=== PATIENT | male | born 1990 | race Caucasian/White ===

== ENCOUNTER 2016-11-06 17:30 | Emergency (ER) | payer SELFPAY ==
[2016-11-06 17:36] VITALS: BP 112/72
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
--- NOTE | 2016-11-07 07:06 | Diagnostic Imaging Report ---
[facility] [id number] [facility] [address] [id number] Report Submission Date: November 06, 2016 6:05:41 PM CDT Patient Study Name: SD ISLAS Date: November 06, 2016 5:43:10 PM CDT Modality Type: CR Gender: M Description: UPPER EXTREMITY : 89 Institution: [facility] Physician: LANDON ODEN Left hand 3 views Clinical history pain Technique AP lateral oblique Findings: There is no fracture /lytic change. Bone density is normal. The joints appear normal. Impression: Negative left hand Electronically signed on November 06, 2016 6:05:41 PM CDT by: Ayden TORRES
== END 2016-11-06 18:21 | disposition home or self-care (01) ==
LOC: ED 17:30
DX: S63.642A Sprain of metacarpophalangeal joint of left thumb, initial encounter (principal); X58.XXXA Exposure to other specified factors, initial encounter; Y93.9 Activity, unspecified; Y99.9 Unspecified external cause status
CPT/HCPCS: 73130; 99283